=== PATIENT | male | born 1950 | race Caucasian/White ===

== ENCOUNTER 2016-10-22 18:28 | Emergency (ER) | payer MEDICARE, BC ==
[~2016-10-22] VITALS: Ht 185.4 cm; Wt 103.0 kg
[~2016-10-22 18:28] MED LIST: ASPI-99 PO; CHOLESTEROL PILL; LORTA5 PO; SULF-154 PO; SYNT25TA PO; [UNRECOGNIZED DRUG - CODE]
[2016-10-22 18:41] VITALS: BP 155/91; PULSE 74; RESP 16; TEMP 98.3; O2SAT 96
[2016-10-22] MEDS ORDERED: SYNT25TA PO (18:54)
[2016-10-22] MEDS ORDERED: SIMV20TA PO (18:54)
[2016-10-22] MEDS ORDERED: ROBITUSSIN AC PO (19:05)
[2016-10-22] MEDS ORDERED: ZITHTAB PO (19:05)
--- NOTE | 2016-10-22 19:05 | PD ---
HPI Chief Complaint: Cold / Flu Symptoms Time Seen by Provider: 19:01 Travel History International Travel<30 days: No Contact w/Intl Traveler<30days: No Traveled to known affect area: No History of Present Illness HPI 66-year-old male complains of coughing congestion. Patient started having congestion and body ache about a week ago. Patient states that the congestion and body ache better however patient had persistent productive cough the past few days. Patient denies any headache. Patient states that he has occasional sharp pain and coughing. Patient denies abdominal pain. Patient denies any nausea vomiting diarrhea. Patient denies any fever chills. PFSH Past Medical History High Cholesterol: Yes Diminished Hearing: No GERD: Yes Radiation Therapy: Yes (FOR THYROID DISEASE) Thyroid Disease: Yes Influenza Vaccination: No Past Surgical History Surgical History: No Previous Surgery Social History Alcohol Use: Yes (SOCIALLY) Tobacco Use: No Substance Use: No Allergies-Medications (Allergen,Severity, Reaction): Coded Allergies: No Known Allergies (Unverified , 10/22/16) Reported Meds & Prescriptions Reported Meds & Active Scripts Active Reported Simvastatin 20 Mg Tab 20 Mg PO DAILY Synthroid (Levothyroxine Sodium) 25 Mcg Tab 25 Mcg PO DAILY Review of Systems General / Constitutional: No: Fever Eyes: No: Visual changes HENT: No: Headaches Cardiovascular: No: Chest Pain or Discomfort Respiratory: Positive: Cough, No: Shortness of Breath Gastrointestinal: No: Abdominal Pain Genitourinary: No: Dysuria Musculoskeletal: No: Pain Skin: No Rash Neurologic: No: Weakness Psychiatric: No: Depression Endocrine: No: Polydipsia Hematologic/Lymphatic: No: Easy Bruising Physical Exam Narrative GENERAL: Well-nourished, well-developed patient. SKIN: Warm and dry. HEAD: Normocephalic. EYES: No scleral icterus. No injection or drainage. Throat: Nonerythematous. NECK: Supple, trachea midline. No JVD or lymphadenopathy. CARDIOVASCULAR: Regular rate and rhythm without murmurs, gallops, or rubs. RESPIRATORY: Breath sounds equal bilaterally. No accessory muscle use. GASTROINTESTINAL: Abdomen soft, non-tender, nondistended. MUSCULOSKELETAL: No cyanosis, or edema. BACK: Nontender without obvious deformity. No CVA tenderness. Data Data Last Documented VS Vital Signs Date Time Temp Pulse Resp B/P Pulse Ox O2 Delivery O2 Flow Rate FiO2 10/22/16 18:49 96 Room Air 10/22/16 18:41 98.3 74 16 155/91 MDM Medical Decision Making Medical Screen Exam Complete: Yes Emergency Medical Condition: Yes Differential Diagnosis Differential diagnosis including bronchitis, pneumonia. Narrative Course 66-year-old male with persistent cough. Diagnosis Primary Impression: Bronchitis Patient Instructions: General Instructions Additional Instructions: Take medications as directed. Follow-up with personal physician. Return if persistent problem or worse. Med/Other Pt SpecificInfo: Prescription(s) given Scripts [Sriram Ac] No Conflict Check10 Ml PO Q6HR #120 Prov:Liang Cole MD 10/22/16 Azithromycin (Zithromax Z-Gallo)250 Mg [id number] Mg PO DIRECTED #1 DSPK 500 MG (2 tabs) day 1, then 1 tab days 2-5. Prov:Liang Cole MD 10/22/16 Disposition: 01 DISCHARGE HOME Condition: Stable Liang Cole MD Oct 22, 2016 19:05
== END 2016-10-22 19:12 | disposition home or self-care (01) ==
LOC: PHEFT 18:28
DX: J40 Bronchitis, not specified as acute or chronic (principal); E78.00 Pure hypercholesterolemia, unspecified
CPT/HCPCS: 99283

== ENCOUNTER 2018-01-26 17:50 | Emergency (ER) | payer OTHER, BC, MEDICARE ==
[~2018-01-26 17:50] MED LIST changes: -ASPI-99 PO; -CHOLESTEROL PILL; -LORTA5 PO; +ROBITUSSIN AC PO; +SIMV20TA PO; -SULF-154 PO; +ZITHTAB PO; -[UNRECOGNIZED DRUG - CODE]
[2018-01-26 18:13] VITALS: BP 191/96; PULSE 90; RESP 18; TEMP 98.7; O2SAT 99
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
== END 2018-01-26 21:10 | disposition home or self-care (01) ==
LOC: NEPK 17:50
DX: S60.512A Abrasion of left hand, initial encounter (principal); S60.212A Contusion of left wrist, initial encounter; S60.222A Contusion of left hand, initial encounter; V49.49XA Driver injured in collision with other motor vehicles in traffic accident, initial encounter; Y92.410 Unspecified street and highway as the place of occurrence of the external cause; E78.00 Pure hypercholesterolemia, unspecified; K21.9 Gastro-esophageal reflux disease without esophagitis; E07.9 Disorder of thyroid, unspecified
CPT/HCPCS: 73110; 99283